=== PATIENT | male | born 1990 | race Caucasian/White ===

== ENCOUNTER 2016-06-26 20:42 | Emergency (ER) | payer OTHER ==
--- NOTE | ~2016-06-26 | CR127 ---
[facility]. [facility] A Service of [facility] & [facility] / [facility] RADIOLOGY TEXT RESULTS PATIENT: REMEDIOS TOWNSEND LOCATION: SED : [birth year] UNIT #: [id number] AGE: [address]: Tra Lewis MD SEX: M ORDER DR: [id number] [place] [id number] E MR#: [id number] Acc #: [id number] NAME: REMEDIOS TOWNSEND : 1990 SEX: M STUDY DATE/TIME: 06/26/2016 20:56 UNIT: SED ROOM: STUDY DESCRIPTION: CR Foot Complete Min 3 View Rt Attending Physician: Tra Lewis M.D. Ordering Physician: Tra Lewis M.D. MEDICAL IMAGING REPORT This report is preliminary unless electronic signature is present. EXAM Right foot HISTORY Pain in the great toe for the past week. TECHNIQUE 3 views of the foot were obtained. FINDINGS The tarsal, metatarsal, and phalangeal elements are all anatomically normal in position and alignment. There are no articular defects. No fractures or radiopaque foreign bodies in the soft tissues are apparent. IMPRESSION Normal foot. Dictated by... Howard Mcdowell M.D. THIS IS AN ELECTRONICALLY VERIFIED REPORT Howard Mcdowell M.D. at 06/26/2016 10:23 PM RLF/pcl TD: 06/26/2016 21:24 JOB #: [id number] MEDICAL IMAGING REPORT Page 1 of 1
[~2016-06-26 20:42] MED LIST: ALBUTEROL17 GM; ALBUTEROL17 GM INH; AMOXICILLIN500 M1 PO; AMOXICILLIN875 MG PO; ANTIVERT PO; BENZONATATE PO; CLARITIN-D1 TAB 241 PO; ELIMITE60 GM TOP; FIORICET 50-321 EACH PO; FIORICET1 TAB PO; HYDROCODON-ACE1 EAC7 PO; IBUPROFEN25 GM PO; IBUPROFEN800 MG PO; IMITREX; IMITREX25 MG PO; MAGIC MOUTHWASH PO; MEDROL DOSEPAK4 MG PO; MOTRIN600 MG PO; NO MEDICATIONS; NORCO1 TAB 10/3 PO; PHENERGAN25 MG PO; PREDNISONE5 MG PO; PROMETHAZINE-D240 ML; ROBAXIN 750750 M1 PO; TESSALON PERLE100 M1 PO; VOLTAREN50 MG PO; VOLTAREN75 MG; VOLTAREN75 MG PO; ZOFRANODT PO
== END 2016-06-26 21:24 | disposition home or self-care (01) ==
LOC: SED 20:42
DX: S96.911A Strain of unspecified muscle and tendon at ankle and foot level, right foot, initial encounter (principal); Y93.01 Activity, walking, marching and hiking
CPT/HCPCS: 73630; 96372; 99283; J1885

== ENCOUNTER 2016-09-15 19:30 | Emergency (ER) | payer OTHER ==
[~2016-09-15] VITALS: Ht 182.9 cm; Wt 104.3 kg
[2016-09-15 19:53] LABS: URINE SOURCE CLEAN CATCH
[2016-09-15 19:56] LABS: URINE APPEARANCE CLEAR; URINE BILIRUBIN NEG (NEG); URINE BLOOD NEG (NEG); URINE COLOR YELLOW; URINE GLUCOSE NEG (NORM); URINE KETONE TRACE (NEG); URINE LEUKOCYTE ESTERASE NEG (NEG); URINE NITRATE NEG (NEG); URINE PH 5.5 (5-8); URINE PROTEIN NEG (NEG); URINE SPECIFIC GRAVITY 1.025 (1.003-1.035); URINE UROBILINOGEN 0.2 MG/DL (NORM)
[2016-09-15 19:57] LABS: MICRO INDICATED? NO
[2016-09-18 01:29] LABS: CHLAMYDIA TRACH Not Detected (Not Detected); N GONOR Not Detected (Not Detected)
== END 2016-09-15 20:06 | disposition home or self-care (01) ==
LOC: SED 19:30
PROVIDERS: Physician Assistant
DX: Z11.3 Encounter for screening for infections with a predominantly sexual mode of transmission (principal); G43.909 Migraine, unspecified, not intractable, without status migrainosus
CPT/HCPCS: 81003; 87491; 87591; 99283